=== PATIENT | female | born 1985 | race Caucasian/White ===

== ENCOUNTER 2016-11-10 16:18 | Emergency (ER) | payer SELFPAY ==
[2016-11-10 19:50] LABS: HCG URINE NEGATIVE (NEGATIVE)
== END 2016-11-10 20:54 | disposition home or self-care (01) ==
LOC: D.ER 16:18
PROVIDERS: Nurse Practitioner Family
DX: S00.83XA Contusion of other part of head, initial encounter (principal); Y04.2XXA Assault by strike against or bumped into by another person, initial encounter; Y93.89 Activity, other specified; Y92.019 Unspecified place in single-family (private) house as the place of occurrence of the external cause; S06.0X0A Concussion without loss of consciousness, initial encounter; F17.200 Nicotine dependence, unspecified, uncomplicated